=== PATIENT | male | born 1975 | race African-American/Black ===

== ENCOUNTER 2016-11-27 00:40 | Emergency (ER) | payer OTHER ==
[~2016-11-27] VITALS: Ht 167.6 cm; Wt 90.7 kg
--- NOTE | 2016-11-27 01:13 | Emergency Room Report ---
History of Present Illness General Chief Complaint: Pain Source: Patient, EMS Present Illness HPI Patient presents with pain to the left leg Reports that 2 days ago he was diagnosed with DVT in the left leg at [place] Patient previously had DVT in the left side was on anticoagulations for long time About a year ago was taken off Coumadin And now recently began having swelling and discomfort to the left leg and again was diagnosed with DVT Patient is a paraplegic from T12 down And is in a wheelchair Pain to the left leg is 4/10 Denies any fevers or chills denies any other fall or trauma Allergies: Coded Allergies: No Known Allergies (Unverified , 11/27/16) Patient History Past Medical History: see triage record Pertinent Family History: none Reviewed Nursing Documentation: PMH: Agreed, PSxH: Agreed Nursing Documentation-PMH Past Medical History: No History, Except For Hx Hypertension: Yes Hx Asthma: Yes Review of Systems All Other Systems: negative except mentioned in HPI Physical Exam Vital Signs Date Time Temp Pulse Resp B/P Pulse Ox O2 Delivery O2 Flow Rate FiO2 11/27/16 00:43 98.2 95 16 150/86 100 Room Air Sp02 EP Interpretation: reviewed, normal General Appearance: well appearing, no apparent distress Head: normocephalic, atraumatic Eyes: bilateral eye EOMI, bilateral eye PERRL ENT: hearing grossly normal, normal pharynx, TMs + canals normal, uvula midline Neck: full range of motion, supple, no meningismus, no bony tend Respiratory: lungs clear, normal breath sounds, no rhonchi, no respiratory distress, no retraction, no accessory muscle use Cardiovascular #1: normal peripheral pulses, regular rate, rhythm, no edema, no gallop, no JVD, no murmur Gastrointestinal: normal bowel sounds, non tender, soft, no mass, no organomegaly, non-distended, no guarding, no hernia, no pulsatile mass, no rebound Genitourinary: no CVA tenderness Musculoskeletal: other - Paraplegia from T12 down, there is some mild swelling in the left thigh and calf compared to the right side, otherwise good circulation palpable pulses good cap refills Neurologic: oriented x3, responsive Psychiatric: mood/affect normal Skin: other - Swelling is noted above Lymphatic: other - swelling left leg Medical Decision Making Diagnostic Impression: Primary Impression: DVT (deep venous thrombosis) ER Course Patient has recent diagnosis of DVT Patient also has a history of previous DVT was on Coumadin previously Patient has been set up with Lovenox and Coumadin therapy as an outpatient at this time his clinical findings are in line with DVT no obvious secondary cellulitis Patient has good flow and good cap refills distally I do not suspect any arterial pathology And requires close continued outpatient followup Last Vital Signs Date Time Temp Pulse Resp B/P Pulse Ox O2 Delivery O2 Flow Rate FiO2 11/27/16 00:43 98.2 95 16 150/86 100 Room Air Status: improved Disposition: HOME, SELF-CARE Condition: Improved Scripts Cephalexin* (KEFLEX*) 500 Mg Capsule 500 MG ORAL Q6H, #40 CAP 0 Refills Prov: RENETTA HATHAWAY D.O. 11/27/16 Hydrocodone Bit/Acetaminophen 10-325* (NORCO 10-325*) 1 Each Tablet 1 TAB ORAL Q6H Y for For Pain, #15 TAB 0 Refills PRN PAIN Prov: RENETTA HATHAWAY D.O. 11/27/16 Additional Instructions: Patient is provided with the discharge instructions notified to follow up with primary doctor in the next 2-3 days otherwise return to the er with any worsening symptoms. Please note that this report is being documented using [employer] technology. This can lead to erroneous entry secondary to incorrect interpretation by the dictating instrument. RENETTA HATHAWAY D.O. Nov 27, 2016 01:13
[2016-11-27] MEDS ORDERED: Morphine Sulfate 10mg/ml Inj IM ONE (01:15)
[2016-11-27] MEDS ORDERED: NORCO 10-325 T1 EACH ORAL (01:47)
[2016-11-27 02:00] VITALS: BP 146/76
[2016-11-27] MEDS ORDERED: KEFLEX500 MG ORAL (02:47)
[2016-11-27] MEDS ORDERED: HYDROmorphone 1mg/ml Carpuject IM ONE (04:00)
[2016-11-27 06:50] VITALS: BP 123/88
[2016-11-27 08:27] VITALS: BP 123/88
== END 2016-11-27 08:30 | disposition home or self-care (01) ==
LOC: EDBD 00:40 → EMR 00:56
DX: I82.402 Acute embolism and thrombosis of unspecified deep veins of left lower extremity (principal); G82.20 Paraplegia, unspecified; Z99.3 Dependence on wheelchair; I10 Essential (primary) hypertension; J45.909 Unspecified asthma, uncomplicated
CPT/HCPCS: 96372; 99284; J1170; J2270